=== PATIENT | female | born 1965 | race Caucasian/White ===

== ENCOUNTER 2016-08-17 13:40 | Emergency (ER) | payer MEDICAID ==
[2016-08-17] MEDS ORDERED: DIAZEPAM 5 MG TABLET PO ONE (16:00)
--- NOTE | 2016-08-17 16:05 | Emergency Department Record ---
History of Present Illness - General Chief Complaint: Back Pain/Injury Stated Complaint: BACK PAIN SINCE YESTERDAY 08/16/16 Time Seen by Provider: 08/17/16 16:00 Source: Patient Mode of Arrival: Ambulatory Limitations: No limitations - History of Present Illness Initial Comments: 51 yo female presents to ED with a CC of fall resulting in injury to the low back and right hip yesterday. Patient reports pain symptoms following her fall , denies weakness or numbness to the lower extremities. Patient denies health problems at her baseline. Patient reports taking Tylenol last night for her pain symptoms that has not helped much. MD Complaint: Back pain Onset/Timin -: Days(s) Similar Symptoms Previously: Yes Place: Home Radiation: None Severity: Moderate Severity scale (1-10): 9 Quality: Aching Consistency: Constant Worsens With: Movement Context: Fall Treatments Prior to Arrival: Acetaminophen - Related Data Home Medications Medication Instructions Recorded Confirmed Last Taken Acetaminophen with Codeine 1 each PO TID 08/17/16 08/17/16 Unknown [Tylenol with Codeine #3 Tablet] Atorvastatin Calcium [Lipitor] 20 mg PO DAILY 08/17/16 08/17/16 1 Day Ago ~08/16/16 Estradiol [Estrace] 1 mg PO DAILY 08/17/16 08/17/16 2 Days Ago ~08/15/16 Omeprazole 20 mg PO DAILY 08/17/16 08/17/16 1 Day Ago ~08/16/16 Previous Rx's Medication Instructions Recorded Diazepam [Valium] 5 mg PO Q8H PRN #15 tab 08/17/16 Naproxen [Naprosyn] 500 mg PO Q12H #30 tab 08/17/16 Allergies Allergy/AdvReac Type Severity Reaction Status Date / Time No Known Drug Allergies Allergy Verified 08/17/16 14:50 Travel Screening - Travel/Exposure Within Last 30 Days Have you traveled within the last 30 days?: No - Travel/Exposure Within Last Year Have you traveled outside the [place] in the last year?: No - Additonal Travel Details Have you been exposed to anyone with a communicable illness?: No - Travel Symptoms Symptom Screening: None Review of Systems Constitutional: Denies: Chills, Fever, Malaise, Night sweats Eyes: Denies: Eye discharge, Eye pain ENT: Denies: Congestion, Ear pain, Epistaxis Respiratory: Denies: Cough, Dyspnea Cardiovascular: Denies: Chest pain, Dyspnea on exertion Endocrine: Denies: Fatigue, Heat or cold intolerance Gastrointestinal: Denies: Abdominal pain, Nausea, Vomiting Genitourinary: Denies: Incontinence, Retention Musculoskeletal: Reports: Arthralgia, Back pain. Denies: Gout, Joint swelling Skin: Denies: Bruising, Change in color Neurological: Denies: Abnormal gait, Confusion, Headache, Seizure Psychiatric: Denies: Anxiety Hematological/Lymphatic: Denies: Anemia, Blood Clots Past Medical History - SOCIAL HISTORY Smoking Status: Current every day smoker Alcohol Use: Occassional Drug Use: None - RESPIRATORY Hx Bronchitis: No Hx COPD: No - CARDIOVASCULAR Hx Cardio Disorders: No - NEURO Hx Headaches: Yes (sinus) - GI Hx Abdominal Pain: Yes Hx Reflux: Yes Hx Irritable Bowel: Yes - Hx UTI: Yes - ENDOCRINE Hx Diabetes: No Hx Thyroid Disease: No - MUSCULOSKELETAL Hx Arthritis: Yes Hx Back Injury: Yes - PSYCH Hx Depression: Yes - HEMATOLOGY/ONCOLOGY Hx Hematology/Oncology Disorders: No Family Medical History Any Significant Family History?: Yes Physical Exam - General General Appearance: Alert, Oriented x3, Cooperative, Moderate distress Limitations: No limitations - Head Head exam: Atraumatic, Normocephalic, Normal inspection Head exam detail: negative: Abrasion, Contusion, Richey's sign, General tenderness, Hematoma, Laceration - Eye Eye exam: Normal appearance. negative: Conjunctival injection, Periorbital swelling, Periorbital tenderness, Scleral icterus - ENT Ear exam: negative: Auricular hematoma, Auricular trauma Nasal Exam: negative: Active bleeding, Discharge, Dried blood, Foreign body Mouth exam: negative: Drooling, Laceration, Muffled voice, Tongue elevation - Neck Neck exam: Normal inspection. negative: Meningismus, Tenderness - Respiratory Respiratory exam: Normal lung sounds bilaterally. negative: Rales, Respiratory distress, Rhonchi, Stridor - Cardiovascular Cardiovascular Exam: Regular rate, Normal rhythm, Normal heart sounds - GI/Abdominal GI/Abdominal exam: Soft. negative: Rebound, Rigid, Tenderness - Rectal Rectal exam: Deferred - exam: Deferred - Extremities Extremities exam: Tenderness (MIld TTP to the right hip laterally, FROM on examination, mild-moderate TTP over the low back on examination. Ecchymosis and STS to the left volar aspect of the left forearm). negative: Calf tenderness, Pedal edema - Back Back exam: Reports: Paraspinal tenderness. Denies: CVA tenderness (R), CVA tenderness (L) - Neurological Neurological exam: Alert, Oriented X3, Other (EHL strength is 5/5 and symmetric bilaterally). negative: Motor sensory deficit - Psychiatric Psychiatric exam: Normal affect, Normal mood - Skin Skin exam: Normal color. negative: Abrasion Type of lesion: negative: abrasion Course Vital Signs 08/17/16 14:39 Temperature 98.2 F Pulse Rate 67 Respiratory 16 Rate Blood Pressure 122/79 Pulse Ox 98 - Reevaluation(s) Reevaluation #1: 08/17/16 17:06 CT Lumbar Spine: Degenerative changes, no traumatic injury/fracture identified. Calcified mass LUQ, presumably splenic cyst? recommend CT of the abdomen non- emergently for further evaluation. CT Pelvis: No acute traumatic injury, degenerative arthritis is present. Patient was updated on all results and recommended CT imaging of the abdomen as an outpatient. Patient appears stable for discharge with Valium and Naprosyn for her back pain symptoms following her fall. Disposition Disposition: Discharge Clinical Impression: Contusion of back Qualifiers: Encounter type: initial encounter Laterality: unspecified laterality Qualified Code(s): S20.229A - Contusion of unspecified back wall of thorax, initial encounter Contusion, hip Qualifiers: Encounter type: initial encounter Laterality: right Qualified Code(s): S70.01XA - Contusion of right hip, initial encounter Disposition: Home, Self-Care Condition: (2) Stable Instructions: Contusion in Adults (ED) Additional Instructions: Return to ED if your symptoms worsen or if you have any concerns. Valium and Naprosyn as directed. Follow-up with your family doctor in 3-5 days as directed. Follow-up with your family doctor for CT imaging of the abdomen as an outpatient to further evaluate the calcified mass in the abdomen in 2-4 weeks as directed. Prescriptions: Diazepam [Valium] 5 mg PO Q8H PRN #15 tab PRN Reason: Pain - Moderate (5-7) Naproxen [Naprosyn] 500 mg PO Q12H #30 tab.dr Forms: Patient Portal Access Time of Disposition: 17:12
[2016-08-17] MEDS: HYDROCODONE/APAP 5/325MG TABLET PO ONE ×2 (16:59→17:00)
--- NOTE | 2016-08-18 15:30 | CT SCAN REPORT ---
EXAM: CT SCAN LUMBAR SPINE WO CONTRAST HISTORY: PATIENT FELL. LOW BACK PAIN, RIGHT HIP PAIN. TECHNIQUE: CT of the lumbar spine performed without contrast. COMPARISON: None. FINDINGS: There are the typical five lumbar vertebral segments. The lumbosacral junction is numbered L5-S1. There is no fracture or acute osseous abnormality identified. The disc spaces are fairly well maintained. Small degenerative endplate spurs are present at the L2-3 and L3-4 levels. Mild facet arthritic changes are present at L4-5. Moderately severe right-sided arthritic changes at L5-S1 and mild left facet arthritic changes at L5-S1. No obvious disc herniation or spinal stenosis. There is a large peripherally calcified mass in the upper left abdomen. Etiology is uncertain. CT of the abdomen could be performed for further assessment. IMPRESSION: 1. NO LUMBAR FRACTURE IDENTIFIED. 2. MODERATELY SEVERE ARTHRITIC CHANGES IN THE RIGHT FACET AT L5-S1. MILD ARTHRITIC CHANGES IN THE LEFT FACET AT L5-S1 AND IN BOTH FACETS AT L4-5. 3. NO ACUTE LUMBAR SPINE ABNORMALITY. 4. LARGE PERIPHERALLY CALCIFIED MASS IN THE LEFT UPPER ABDOMEN MEASURING AT LEAST 12 CM IN DIAMETER. ETIOLOGY IS UNCERTAIN. POTENTIALLY THIS IS A SPLENIC CYST. CT OF THE ABDOMEN SUGGESTED FOR FURTHER ASSESSMENT. JOB NUMBER: [id number] MTDD
--- NOTE | 2016-08-18 15:37 | CT SCAN REPORT ---
EXAM: CT SCAN PELVIS WO CONTRAST HISTORY: PATIENT FELL, RIGHT HIP PAIN. TECHNIQUE: CT of the pelvis is performed without intravenous contrast. COMPARISON: None. FINDINGS: No fracture or acute osseous abnormality identified. There is no right hip fracture. Right hip joint space is well maintained. There are moderately severe arthritic changes in the right L5-S1 facet joint. No pelvic fracture. No sacral or coccygeal fracture identified. The left hip is unremarkable. No soft tissue mass or hematoma identified. No pelvic mass, abscess, or adenopathy. There is no free air or free fluid identified. IMPRESSION: 1. NO FRACTURE OR ACUTE OSSEOUS ABNORMALITY. 2. ARTHRITIC CHANGES IN THE RIGHT L5-S1 FACET JOINT. 3. NOT MENTIONED ABOVE, MILD ARTHRITIC CHANGES IN THE SYMPHYSIS PUBIS. JOB NUMBER: [id number] MTDD
== END 2016-08-17 17:23 | disposition home or self-care (01) ==
LOC: ER 13:40
DX: S60.229A Contusion of unspecified hand, initial encounter (principal); S70.01XA Contusion of right hip, initial encounter; W01.0XXA Fall on same level from slipping, tripping and stumbling without subsequent striking against object, initial encounter; Y92.008 Other place in unspecified non-institutional (private) residence as the place of occurrence of the external cause
CPT/HCPCS: 99283 ×2; 72131; 72192; J3490

== ENCOUNTER 2017-12-17 08:01 | Day surgery (SDC) | payer MEDICAID ==
[2017-12-17] MEDS ORDERED: PROPOFOL 10 MG/ML VIAL IV ONE (08:02)
[2017-12-17] MEDS ORDERED: LIDOCAINE 2% MDV (20MG/ML) 20ML VIAL IV ONE (08:02)
--- NOTE | 2017-12-18 10:20 | Operative Note ---
DATE OF SURGERY: December 17, 2017 OPERATION: ESOPHAGOGASTRODUODENOSCOPY with biopsy. PREOPERATIVE DIAGNOSIS: Epigastric pain and heartburn. POSTOPERATIVE DIAGNOSES: 1. Nodular antral erosions. 2. Gastritis. 3. Gastroesophageal reflux disease. PROCEDURE: After informed consent was obtained from the patient, she was placed in the left lateral decubitus position in the endoscopy suite, sedated and monitored by the department of anesthesia. Once sedated, a well-lubricated [id number] gastroscope was placed in the posterior oropharynx and under direct visualization passed to the proximal esophagus. The endoscope was advanced through the proximal, mid, and distal esophagus. The GE junction demonstrated erythematous changes and edema. No ulcers, erosions, strictures, or varices were otherwise seen. The gastric body demonstrated normal distensibility, normal rugal folds. There were flecks of adherent heme throughout the body and fundus. In the antrum there were nodular erosions. The pylorus was cannulated revealing a normal-appearing duodenal bulb and sweep. J-turn views of the proximal stomach again demonstrated flecks of adherent heme but no other abnormalities. The endoscope was straightened and antral biopsies obtained. The endoscope removed from the patient with no new findings noted. RECOMMENDATIONS: I will start her on pantoprazole 40 mg daily and repeat her upper endoscopy in 8 weeks. As always, thank you for allowing me to participate in the healthcare of your patients. CC: MD HERIBERTO Estrada
== END 2017-12-17 09:32 | disposition home or self-care (01) ==
LOC: HOP 08:01
PROVIDERS: ATTEND Internal Medicine Gastroenterology
DX: R10.13 Epigastric pain (principal); R12 Heartburn; K21.9 Gastro-esophageal reflux disease without esophagitis; K29.60 Other gastritis without bleeding

== ENCOUNTER 2018-02-18 08:13 | Day surgery (SDC) | payer MEDICAID ==
[2018-02-18] MEDS ORDERED: PROPOFOL 10 MG/ML VIAL IV ONE (08:14)
[2018-02-18] MEDS ORDERED: LIDOCAINE 2% MDV (20MG/ML) 20ML VIAL IV ONE (08:14)
--- NOTE | 2018-02-19 10:30 | Operative Note ---
DATE OF SURGERY: 02/18/2018 OPERATION: ESOPHAGOGASTRODUODENOSCOPY. PREOPERATIVE DIAGNOSIS: History of ulcerative and erosive gastritis. POSTOPERATIVE DIAGNOSIS: Normal exam. PROCEDURE: After informed consent was obtained from the patient, she was placed in the left lateral decubitus position in the endoscopy suite, sedated and monitored by the department of anesthesia. A well-lubricated [id number] gastroscope was placed in the posterior oropharynx under direct visualization and passed to the proximal, mid, and distal esophagus. The esophagus in its length appeared unremarkable. The gastric body, antrum, pylorus, duodenal bulb and sweep were then inspected and were unremarkable as well. Previous inflammatory changes of the stomach had resolved. J-turn views of the proximal stomach were unrevealing. The endoscope was straightened. The stomach was deflated. The endoscope was removed through the proximal stomach and esophagus. No new findings noted. RECOMMENDATIONS: I would suggest the patient continue on her proton pump inhibitor therapy. I also have strongly encouraged her to stop smoking. As always, thank you for allowing me to participate in the healthcare of your patients. CC: MD HERIBERTO Estrada
== END 2018-02-18 09:52 | disposition home or self-care (01) ==
LOC: HOP 08:13
PROVIDERS: ATTEND Internal Medicine Gastroenterology
DX: Z87.19 Personal history of other diseases of the digestive system (principal); E78.00 Pure hypercholesterolemia, unspecified

== ENCOUNTER 2018-04-26 12:44 | Emergency (ER) | payer MEDICAID ==
--- NOTE | 2018-04-26 12:51 | Emergency Department Record ---
History of Present Illness - General Chief Complaint: Back Pain/Injury Stated Complaint: LOWER BACK PAIN Time Seen by Provider: 04/26/18 12:49 Source: Patient, Family Mode of Arrival: Ambulatory Limitations: No limitations - History of Present Illness Initial Comments: 53 yo female presents with low back pain for about 3-4 days. She states she has chronic pain but he usual pain has increased the last 3-4 days. She has been both sitting more that usual and lifting and working around the house more than usual because of her ill . The lower lumbar area is constantly aching but worse with certain movements or position changes. The pain radiates to the right buttocks. No distal radiation beyond the buttocks. No weakness, numbness or tingling. She has had a mild increase in urinary frequency. No blood in the urine. No pain with urination. MD Complaint: Back pain -: Days(s) Place: Home Radiation: None, Buttocks (on the right) Severity: Moderate Quality: Aching, Burning Consistency: Constant Improves With: None Worsens With: Movement, Walking Context: Bending, Turning/twisting Associated Symptoms: Denies other symptoms - Related Data Previous Rx's Medication Instructions Recorded Cyclobenzaprine HCl [Flexeril] 10 mg PO TID #20 tablet 04/26/18 Methylprednisolone [Medrol Dose 4 mg PO DAILY #1 tab.ds.pk 04/26/18 Pack] Allergies Allergy/AdvReac Type Severity Reaction Status Date / Time No Known Drug Allergies Allergy Verified 04/26/18 12:54 Review of Systems Constitutional: Denies: Chills, Fever, Malaise, Weakness Eyes: Denies: Eye discharge, Eye pain, Photophobia, Vision change ENT: Denies: Congestion, Throat pain Respiratory: Denies: Cough, Dyspnea, Hemoptysis, Stridor, Wheezes Cardiovascular: Denies: Chest pain, Palpitations, Syncope Endocrine: Denies: Fatigue Gastrointestinal: Denies: Abdominal pain, Diarrhea, Nausea, Vomiting Genitourinary: Reports: Frequency. Denies: Dysuria, Hematuria, Retention, Urgency Musculoskeletal: Reports: Back pain, Myalgia. Denies: Arthralgia, Joint swelling, Neck pain Skin: Denies: Bruising, Change in color, Rash Neurological: Denies: Abnormal gait, Confusion, Headache, Numbness, Paresthesias , Tingling, Tremors, Weakness Psychiatric: Denies: Anxiety Hematological/Lymphatic: Denies: Anemia, Blood Clots, Easy bleeding, Easy bruising, Swollen glands Past Medical History - SOCIAL HISTORY Smoking Status: Current every day smoker - RESPIRATORY Hx Respiratory Disorders: Yes Hx COPD: Yes - CARDIOVASCULAR Hx Cardio Disorders: No - NEURO Hx Neuro Disorders: Yes Hx Headaches: Yes (sinus) - GI Hx GI Disorders: Yes Hx Liver Disease: Yes (fatty liver) Comment:: large mass in spleen - Hx Genitourinary Disorders: Yes Hx UTI: Yes - ENDOCRINE Hx Endocrine Disorders: No Hx Diabetes: No Hx Thyroid Disease: No - MUSCULOSKELETAL Hx Musculoskeletal Disorders: Yes Hx Arthritis: Yes Hx Back Injury: Yes - PSYCH Hx Psych Problems: Yes Hx Depression: Yes - HEMATOLOGY/ONCOLOGY Hx Hematology/Oncology Disorders: Yes Hx Cancer: Yes ("bowel") Physical Exam - General General Appearance: Alert, Oriented x3, Cooperative, No acute distress Limitations: No limitations - Head Head exam: Atraumatic, Normal inspection - Eye Eye exam: Normal appearance, PERRL. negative: Conjunctival injection, Scleral icterus - ENT ENT exam: Normal exam Ear exam: Normal external inspection Nasal Exam: Normal inspection Mouth exam: Normal external inspection - Neck Neck exam: Normal inspection - Cardiovascular Cardiovascular Exam: Regular rate, Normal rhythm, Normal heart sounds - GI/Abdominal GI/Abdominal exam: Soft. negative: Tenderness - Rectal Rectal exam: Deferred - exam: Deferred - Extremities Extremities exam: Normal inspection, Full ROM, Other (Negative straight leg raise). negative: Pedal edema, Tenderness Image of Full Body: 1 - tender to palpation, normal inspection - Back Back exam: Reports: Muscle spasm, Paraspinal tenderness (low right lumbar), Tenderness, Vertebral tenderness (low right lumbar). Denies: CVA tenderness (R) , CVA tenderness (L) - Neurological Neurological exam: Alert, Normal gait, Oriented X3, Reflexes normal. negative: Abnormal gait, Altered, Motor sensory deficit - Psychiatric Psychiatric exam: Normal affect, Normal mood - Skin Skin exam: Dry, Intact, Normal color, Warm Course - Reevaluation(s) Reevaluation #1: Lumbar CT reviewed from 08/2016: Moderate to severe arthritic changes R facet at L5-S1 other multilevel changes noted as well. Normal aorta on US of the abdomen 09/201704/26/18 13:27 The examination is consistent with musculo-skeletal in nature with movement, palpation, and position changes. 04/26/18 13:39 The UA is negative. No blood or signs of infection. 04/26/18 13:41 Disposition Disposition: Discharge Clinical Impression: Lumbar pain Disposition: Home, Self-Care Condition: (1) Good Instructions: Low Back Strain (ED) Additional Instructions: Call your doctor for the next available follow up appointment Return to the ER for a recheck if worse, any new concerns or questions Take the prescriptions provided as directed Review this ER visit and the tests performed with your family doctor Prescriptions: Cyclobenzaprine HCl [Flexeril] 10 mg PO TID #20 tablet Methylprednisolone [Medrol Dose Pack] 4 mg PO DAILY #1 tab.ds.pk Forms: Patient Portal Access Time of Disposition: 13:41 Quality - Quality Measures Quality Measures: N/A - Blood Pressure Screening Does Patient Have Any of the Following: No Blood Pressure Classification: Hypertensive Reading Systolic Measurement: 136 Diastolic Measurement: 92 Screening for High Blood Pressure: < Pre-Hypertensive BP, F/U Documented > [ [id number]] Pre-Hypertensive Follow-up Interventions: Referral to alternative/primary care provider.
[2018-04-26] MEDS ORDERED: HYDROCODONE/APAP 7.5/325MG TABLET PO ONE (13:08)
[2018-04-26] MEDS ORDERED: ORPHENADRINE CITRATE 60MG/2ML VIAL IM ONE (13:08)
[2018-04-26 13:34] LABS: URINE APPEARANCE CLEAR; URINE BILIRUBIN NEGATIVE (NEGATIVE); URINE BLOOD NEGATIVE (NEGATIVE); URINE COLOR YELLOW; URINE GLUCOSE (UA) NEGATIVE (NEGATIVE); URINE KETONE NEGATIVE (NEGATIVE); URINE LEUKOCYTE ESTERASE NEGATIVE (NEGATIVE); URINE NITRITE NEGATIVE (NEGATIVE); URINE PROTEIN NEGATIVE (NEGATIVE); URINE UROBILINOGEN 0.2 E.U./dL (0.20 - 1.00)
== END 2018-04-26 14:12 | disposition home or self-care (01) ==
LOC: ER 12:44
DX: G89.11 Acute pain due to trauma (principal); M54.5 Low back pain; R35.0 Frequency of micturition; J44.9 Chronic obstructive pulmonary disease, unspecified; X50.0XXA Overexertion from strenuous movement or load, initial encounter; Y92.009 Unspecified place in unspecified non-institutional (private) residence as the place of occurrence of the external cause; F17.210 Nicotine dependence, cigarettes, uncomplicated
CPT/HCPCS: 81003; 96372; 99283; 99284; J2360